=== PATIENT | male | born 1970 | race African-American/Black ===

== ENCOUNTER 2018-09-05 11:18 | Inpatient (IN) | payer OTHER, MEDICAID ==
[~2018-09-05] VITALS: Ht 170.2 cm; Wt 90.3 kg
[2018-09-05 11:53] LABS: BASOPHILS % 1.8 % (0.0-2.0); EOSINOPHILS % 8.5 % (0.0-5.0); HEMOGLOBIN. 14.1 g/dL (14.0-18.0); LYMPHOCYTES % 38.3 % (20.0-50.0); MEAN CORPUSCULAR HEMOGLOBIN 28.6 pg (28.0-32.0); MEAN PLATELET VOLUME 8.3 fl (7.4-10.4); MONOCYTES % 10.4 % (2.0-8.0); PLATELET 231 x1000/uL (130-400); RED BLOOD CELL COUNT 4.94 mill/uL (4.7-6.1); RED CELL DISTRIBUTION WIDTH 13.8 % (11.6-14.6)
[2018-09-05 11:58] LABS: CHLORIDE 105 mEq/L (98-107)
[2018-09-05] MEDS ORDERED: SODIUM CHLORIDE 0.9% 1,000 ML IV ONE (11:59)
[2018-09-05] MEDS ORDERED: ONDANSETRON HCL 4MG/2ML INJ IV ONE (12:00)
[2018-09-05] MEDS ORDERED: MECLIZINE 25MG TABLET PO ONE (12:00)
[2018-09-05 12:01] LABS: INR 1.1; PARTIAL THROMBOPLASTIN TIME 27.8 sec (23.4-31.0); PROTHROMBIN TIME 10.9 sec (9.6-11.0)
[2018-09-05 12:03] LABS: ETHANOL BLOOD < 10 mg/dL
[2018-09-05] MEDS ORDERED: MAGNESIUM/ALUMINUM HYDROXIDE/SIMETHICONE 30ML UDC PO PRN (14:15)
[2018-09-05] MEDS ORDERED: KETOROLAC 15MG/ML VIAL IV PRN (14:15)
[2018-09-05] MEDS ORDERED: GUAIFENESIN 200MG/10ML SUGAR FREE UDC PO PRN (14:15)
[2018-09-05] MEDS ORDERED: IPRATROPIUM/ALBUTEROL 0.5-3(2.5)MG/3ML NEB INH PRN (14:15)
[2018-09-05] MEDS ORDERED: NITROGLYCERIN 0.4MG TABLET SL SL PRN (14:15)
[2018-09-05] MEDS ORDERED: CLONIDINE 0.1MG TABLET PO PRN (14:15)
[2018-09-05] MEDS ORDERED: ACETAMINOPHEN 325MG TABLET PO PRN (14:15)
[2018-09-05] MEDS ORDERED: DOCUSATE SODIUM 100MG CAPSULE PO PRN (14:15)
[2018-09-05] MEDS ORDERED: ZOLPIDEM TARTRATE 5MG TABLET PO PRN (14:15)
[2018-09-05] MEDS ORDERED: ONDANSETRON HCL 4MG/2ML INJ IV PRN (14:15)
[2018-09-05 20:00] VITALS: BP 137/99
[2018-09-05 20:53] VITALS: BP 137/99
[2018-09-05] MEDS ORDERED: ENOXAPARIN 40MG/0.4ML SYR SUBCUT SCH (21:00)
[2018-09-05] MEDS: FAMOTIDINE 20MG TABLET PO SCH (21:45)
[2018-09-06] VITALS: BP 110/70
[2018-09-06 02:19] LABS: CREATINE KINASE 244 IU/L (39-308)
[2018-09-06 02:20] LABS: CREATINE KINASE MB FRACTION < 1.0 ng/mL (0.5-3.6)
[2018-09-06 04:00] VITALS: BP 113/73
[2018-09-06 07:38] LABS: CREATINE KINASE 223 IU/L (39-308)
[2018-09-06 07:39] LABS: CREATINE KINASE MB FRACTION < 1.0 ng/mL (0.5-3.6)
[2018-09-06] MEDS: FAMOTIDINE 20MG TABLET PO SCH (09:00)
[2018-09-06] MEDS ORDERED: ASPIRIN 325MG EC TABLET PO SCH (09:00)
[2018-09-06 12:08] VITALS: BP 128/95
== END 2018-09-06 13:05 | disposition home or self-care (01) | DRG 111 ==
LOC: ER 11:18 → 5WST 13:42 → EDBEDREQ 13:47 → ENRESERV 17:11
PROVIDERS: ADMIT Internal Medicine; ATTEND Internal Medicine
DX: H81.10 Benign paroxysmal vertigo, unspecified ear (principal); R03.0 Elevated blood-pressure reading, without diagnosis of hypertension
CPT/HCPCS: 36415; 70551; 71045; 80061; 80320; 82550; 82553; 83036; 83735; 83880; 84484; 93005; 96374; 99285; J1650; J2405; J7030; J8597; G0480